=== PATIENT | female | born 1990 | race Caucasian/White ===

== ENCOUNTER 2021-01-23 11:04 | Outpatient (REF) | payer OTHER, SELFPAY | END 2021-01-23 11:05 | disposition home or self-care (01) | LOC: HO.LAB 11:04 | PROVIDERS: Visit Provider Internal Medicine | DX: Z20.822 Contact with and (suspected) exposure to COVID-19 (principal) | CPT/HCPCS: C9803; U0003; U0005 ==

== ENCOUNTER 2021-04-24 09:10 | Outpatient (REF) | payer OTHER, SELFPAY ==
[2021-04-24 11:28] LABS: MANUAL DIFF FLAG NO
[2021-04-24 11:32] LABS: Basophils Percent Auto 0.6 % (0-2); Eosinophils Absolute Auto 0.1 X10*3/uL (0.0-0.4); Eosinophils Percent Auto 1.1 % (0-4); Hematocrit 37.9 % (37.0-47.0); Hemoglobin 12.6 g/dl (12.0-16.0); Imm Gran Abs Auto 0.02 X10*3/uL (0.00-0.03); Imm Gran Pct Auto 0.4 % (0.0-0.4); Lymphocytes Absolute Auto 1.9 X10*3/uL (1.2-4.9); Lymphocytes Percent Auto 36.1 % (20-40); Mean Corpuscular HGB Conc 33.2 g/dl (31.0-35.0); Mean Corpuscular Hemoglobin 29.4 pg (27.0-33.0); Mean Corpuscular Volume 88.3 fL (80.0-98.0); Monocytes Absolute Auto 0.5 X10*3/uL (0.1-1.2); Monocytes Percent Auto 9.5 % (2-11); Neutrophils Absolute Auto 2.8 x10*3/uL (2.0-8.3); Neutrophils Percent Auto 52.3 % (45-73); Platelet Count 258 X10*3/uL (160-400); Red Blood Count 4.29 X10*6/uL (4.20-5.50); Red Cell Distribution Width 13.5 % (11.0-16.0); White Blood Count 5.4 X10*3/uL (4.8-10.8)
[2021-04-24 11:57] LABS: Alanine Aminotransferase 15 U/L (0-31); Alkaline Phosphatase 52 U/L (39-117); Anion Gap 15 (12-20); Aspartate Amino Transferase 18 U/L (5-31); Bilirubin Total 0.6 mg/dL (0.0-1.0); Blood Urea Nitrogen 12 mg/dL (9-16); Calcium 9.4 mg/dL (8.4-10.2); Carbon Dioxide 22 mmol/L (22-29); Chloride 107 mmol/L (96-108); Cholesterol 147 mg/dL; Estimated Glomerular Filt Rate > 60; Glucose Random 79 mg/dL (60-115); Potassium 4.1 mmol/L (3.3-5.1); Sodium 140 mmol/L (135-145); Total Protein 7.2 g/dL (6.5-8.0)
[2021-04-24 12:21] LABS: Free T4 (Free Thyroxine) 0.95 ng/dL (0.71-1.85); Thyroid Stimulating Hormone 1.11 uIU/mL (0.32-4.0)
== END 2021-04-24 09:11 | disposition home or self-care (01) ==
LOC: HO.HMGCLDS 09:10
PROVIDERS: PCP Internal Medicine; Visit Provider Internal Medicine
DX: I10 Essential (primary) hypertension (principal); Z83.3 Family history of diabetes mellitus
CPT/HCPCS: 36415; 80053; 82465; 84439; 84443; 85025

== ENCOUNTER 2022-09-10 14:00 | Outpatient (REF) | payer OTHER, SELFPAY ==
[2022-09-10 14:55] LABS: Influenza A PCR NEGATIVE (Negative); Influenza B PCR NEGATIVE (Negative); Resp Syncy Virus RNA Qual PCR NEGATIVE (Negative); SARS COV2 PCR INHOUSE NEGATIVE (Negative)
== END 2022-09-10 14:01 | disposition home or self-care (01) ==
LOC: HO.LNP 14:00
PROVIDERS: Visit Provider Internal Medicine
DX: Z20.822 Contact with and (suspected) exposure to COVID-19 (principal); J02.9 Acute pharyngitis, unspecified
CPT/HCPCS: 0241U

== ENCOUNTER 2024-02-07 14:36 | Outpatient (AMB) | payer OTHER, SELFPAY ==
--- NOTE | 2024-02-07 14:54 | MHC.OFFWIV ---
Intake Vital Signs 02/07/24 14:59 Height 5 ft 7 in Weight 176 lb BMI 27.6 BP 124/82 Blood Pressure Location Rt brachial Position Sitting Pulse 54 Pulse Source Pulse Oximeter Temp 98.8 F Temp Source Oral Pulse Oximetry (%) 99 Oxygen Delivery Method Room Air Intake Visit Reasons: EP RT wrist pain Intake Note: pt c/o RT wrist pain. Started 3 months ago. Was lifting a patient at work. Been hurting since Patient Tobacco Use Status: Never used Tobacco Allergies No Known Allergies [No Known Allergies*] Allergy (Verified 02/07/24 15:04) Do you need a note to return to daycare/school/sports/work: No HPI HPI Comments History of Present Illness Details Patient is a 33-year-old female complaining of right wrist pain for 3 months. 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 She said she did not seek any medical care and has just been doing her normal job ever since but the pain is persistent. She has not tried taking any medications or using any ice to make the pain go away. [facility] Social History Patient Tobacco Use Status: Never used Tobacco Review of Systems Const All systems reviewed & are unremarkable except as noted in HPI and below Physical Exam Vital Signs: Last Vital Signs Temp 98.8 F 02/07/24 14:59 Pulse 54 02/07/24 14:59 BP 124/82 02/07/24 14:59 Pulse Ox 99 02/07/24 14:59 Oxygen Delivery Method Room Air 02/07/24 14:59 BMI result Body Mass Index 27.6 Const General: cooperative, healthy appearing, comfortable and no acute distress Orientation/consciousness: patient oriented x3 Limitations: no limitations HEENT Head: Yes normal to inspection Resp Effort & Inspection: normal respiratory effort and able to speak in complete sentences Neuro General: patient oriented x3 Extrem Right upper extremity: wrist Details: swelling Location: of the dorsal wrist and normal ROM (with pain ); no tenderness, no unusual warmth, no abrasions, no lacerations and no ecchymosis Assessment & Plan Assessment & Plan (1) Right wrist sprain: Code(s): S63.501A - Unspecified sprain of right wrist, initial encounter Qualifiers: Encounter type: initial encounter Qualified Code(s): S63.501A - Unspecified sprain of right wrist, initial encounter Plan: swelling on wrist with pain, xray showed nothing acute, no healing fx. Gave pt wrist splint for rest. Recommending rest ice and ibuprofen, follow up with PCP if no improvement in symptoms over the next 2 weeks. Plan see above Coding Level of Care Code New Pt Level 3 (97723) Diagnoses Sprain of right wrist, initial encounter S63.501A Encounter type: initial encounter
[2024-02-07 14:59] VITALS: BP 124/82; PULSE 54; TEMP 37.1; O2SAT 99; BMI 27.6
== END 2024-02-07 16:14 | disposition home or self-care (01) ==
PROVIDERS: PCP Internal Medicine; Visit Provider Physician Assistant
DX: S63.501A Unspecified sprain of right wrist, initial encounter (principal); Z04.2 Encounter for examination and observation following work accident
CPT/HCPCS: 99203

== ENCOUNTER 2024-02-07 15:51 | Outpatient (REF) | payer SELFPAY ==
--- NOTE | ~2024-02-07 | XR_ITS ---
EXAMINATION: XR WRIST, RIGHT CLINICAL INFORMATION: Wrist pain and sprain COMPARISON: None available. TECHNIQUE: PA, lateral, and oblique views of the right wrist. FINDINGS: Carpal alignment is normal. No fracture, dislocation or destructive process. No erosive change. XR/XR wrist RT min 3V IMPRESSION: Negative study. Electronically signed by: Wilfred Welch MD 02/08/2024 09:11 AM EDT
== END 2024-02-07 15:52 | disposition home or self-care (01) ==
LOC: HO.HMGCX 15:51
PROVIDERS: PCP Internal Medicine; Visit Provider Physician Assistant
DX: S63.501A Unspecified sprain of right wrist, initial encounter (principal)
CPT/HCPCS: 73110